=== PATIENT | female | born 2000 | race Hispanic/Latino ===

== ENCOUNTER 2024-02-20 16:11 | Emergency (ER) | payer OTHER ==
--- OUTSIDE RECORDS SUMMARY | 2024-02-20 16:17 | XMS REPORT | Continuity of Care Document ---
Author Name Unknown Address [address] [facility] Jose Daniel. [address] [place] [address] [facility] thconnect Address [address] [facility] Jose Daniel. [address] [place] [address] Care Team Providers Care Records Management Engineer Name Role Phone PCP, PATIENT DOES NOT HAVE A Primary Care Physic jessica Unavailable ALESHIA LEI Attending Clinician Unavailable JOHANNA PEDERSEN Attending Clinician Unavailable JOHANNA PEDERSEN Attending Clinician Unavailable 2, [facility] Attending Clinician Unavailable Johanna Pedersen MD Attending Clinician Doctor Unassigned, Triumph Attending Clinician U Marley Redd MD Attending Clinician [phone] MARLEY CROUCH Attending Clinician Unaangi garner Doctor Unassigned, [facility]riumph Attending Clinician U letitia 2, [facility] Attending Clinician Unavailable CAITIE RON Attending Clinician Unavailable Aleshia Lei MD Attending Clinician ASTRID NICOLE Attending Clinician Unavail able Astrid Santos Attending Clinician [phone] Nadine Luna MD Attending Clinician [phone] KARLOS FREEMAN Attending Clinician Unavail able Call, Apa Phone Attending Clinician Unavaila Karlos Merino MD Attending Clinician DO, JOSE CRUZ Attending Clinician Unavailable DO, JOSE CRUZ Attending Clinician Unavailable LAB90 Attending Clinician Unavailable MARII MUHAMMAD Attending Clinician Unavailable JAISON SPICER Attending Clinician Unavailable ALESHIA LEI Admitting Clinician Unavailable Aleshia Lei MD Admitting Clinician [phone] DO, JOSE CRUZ Admitting Clinician Unavailable EMERGENCY ROOM, EMERGENCY Admitting Clinician Un available Payers Payer Name Policy Type Policy Number Effective Date Expirati on Date Source [employer]EFITS [facility] [id number] 2023 00:00:00 [employer] BENEFITS IN [facility] [id number] 2023 00:00:00 [facility] [id number] 2023 00:00:00 [id number] DEGREE BENEFITS [place] [id number] 2023 00:00:00 Problems Condition Name Condition Details Condition Category Status Onset Date Resolution Date Last Treatment Date Treating Clinician Comments Source Obesity affecting in second trimester, unspecifie d obesity type Obesity affecting in second trimester, unspecifie d obesity type Disease Active 01-06 00:00: 00 [facility] Supervisio n of high risk in second trimester Supervisio n of high risk in second trimester Disease Active 01-06 00:00: 00 [facility] 12 weeks gestation of 12 weeks gestation of Disease Active 01-06 00:00: 00 [facility] Hypothyroi d Hypothyroi d Disease Active 2022-05 00:00: 00 Judy mcclain Corpus luteum cyst or hematoma Corpus luteum cyst or hematoma Disease Resolve d 05-06 00:00: 00 2023-11-24 00:00:2023-11-24 15:29:33 [facility] Allergies, Adverse Reactions, Alerts Allergy Name Allergy Type Status Severity Reaction(s) Onset Date Inactive Date Treating Clinician Comments Source NO KNOWN ALLERGIE S Drug Class Active [facility] Social History Social Habit Start Date Stop Date Quantity Comments Source ASSERTION 2023-10-29 00:00:00 [facility] Alcoholic beverage intake 2024-01-07 00:00:00 2024-01-07 00:00:00 Lifetime non-drinker (finding) [facility] History of Social function 2023-07-06 00:00:00 2023-07-06 00:00:00 [facility] Tobacco use and exposure 2023-05-06 00:00:00 2023-05-06 00:00:00 Smokeless tobacco non-user [facility] Alcohol intake 2023-04-15 00:00:00 2023-04-15 00:00:00 Lifetime non-drinker (finding) Judy Rodriguez - External Sex assigned at 2000 00:00:00 2000 00:00:00 [facility] Smoking Status Start Date Stop Date Source Tobacco smoking consumption unknown [facility] Never smoked tobacco [facility] Medications Ordered Medication Name Filled Medication Name Start Date Stop Date Current Medication? Ordering Clinician Indication Dosage Frequency Signature (SIG) Comments Components Source proMETHazin e 25 mg tablet 12-09 00:00: 00 Yes [id number] 25mg Take 1 tablet by mouth every 4 (four) hours as needed for Nausea and Vomiting (N/V). [facility] labetaloL (NORMODYNE) injection 10 mg 07-05 17:57: 28 Yes 10mg 10 mg, Slow IV Push, Q15MIN PRN, 2 doses, Starting on Wed07/06/23 at 1157, Until Discontinu ed, Routine, SBP greater than 170mmHg or DBP greater than 90mmHg., PACU [facility] HYDROmorpho ne (PF) (DILAUDID) injection 0.5 mg 07-05 17:57: 28 Yes .5mg 0.5 mg, Slow IV Push, Q5MIN PRN, 4 doses, Starting on Wed07/06/23 at 1157, Until Discontinu ed, Routine, Pain (scale 7-10), PACU
Us e approved by (Faculty): PACU USE -ANESTHESI A SERVICE-HY DROMORPHON E INJECTIONS [facility] HYDROmorpho ne (PF) (DILAUDID) injection 0.25 mg 07-05 17:57: 28 Yes .25mg 0.25 mg, Slow IV Push, Q5MIN PRN, 4 doses, Starting on Wed07/06/23 at 1157, Until Discontinu ed, Routine, Pain (scale 4-6), PACU
Us e approved by (Faculty): PACU USE -ANESTHESI A SERVICE-HY DROMORPHON E INJECTIONS [facility] proMETHazin e (PHENERGAN) 6.25 mg in NaCl 0.9% (NS) 50 mL piggyback 07-05 17:57: 27 Yes 6.25mg 6.25 mg, IV Piggyback, at 200 mL/hr Administer over 15 Minutes, Q15MIN PRN, 4 doses, Starting on Wed07/06/23 at 1157, Until Discontinu ed, Routine, Nausea and Vomiting (N/V), If unresponsi ve to first choice antiemetic , PACU [facility] ondansetron (ZOFRAN (PF)) injection 4 mg 07-05 17:57: 27 Yes 4mg 4 mg, Slow IV Push, PRN, 1 dose, Starting on Wed07/06/23 at 1157, Until Discontinu ed, Routine, Nausea and Vomiting (N/V), PACU [facility] albuterol (PROVENTIL) 2.5 mg /3 mL (0.083 %) nebulizer solution 2.5 mg 07-05 17:57: 27 Yes 2.5mg 2.5 mg, Inhalation , PRN, 1 dose, Starting on Wed07/06/23 at 1157, Until Discontinu ed, Routine, Wheezing, PACU [facility] ibuprofen (IBU) tablet 800 mg 07-05 16:12: 15 Yes 800mg 800 mg, Oral, PRN, 1 dose, Starting on Wed07/06/23 at 1012, Until Discontinu ed, Routine, Pain (scale 4-6), Endo Recovery [facility] acetaminoph en (TYLENOL) tablet 325 mg 07-05 16:12: 04 Yes 325mg 325 mg, Oral, PRN, 1 dose, Starting on Wed07/06/23 at 1012, Until Discontinu ed, Routine, Pain (scale 1-3), DSU Recovery [facility] bupivacaine (preserv free) (SENSORCAIN E MPF) 0.25 % (2.5 mg/mL) injection 07-05 15:55: 00 07-05 16:21 :50 No PRN, Starting on Wed07/06/23 at 0955, Until Wed07/06/23 at 1021, Routine, Intra-op [facility] lactated ringers IV infusion 1,000 mL 07-05 12:15: 00 07-05 12:40 :00 No 1000mL at 42 mL/hr, 1,000 mL, IV Infusion, ONCE, 1 dose, On Wed07/06/23 at 0615, Routine, DSU Pre-op [facility] pregabalin (LYRICA) capsule 75 mg 07-05 12:11: 30 07-05 12:25 :00 No 75mg 75 mg, Oral, O.R. HOLDING ONCE, 1 dose, Starting on Wed07/06/23 at 0611, Until Wed07/06/23 at 0625, Routine, Surgery/Pr ocedure [facility] phenazopyri dine (PYRIDIUM) tablet 200 mg 07-05 12:11: 30 07-05 12:25 :00 No 200mg 200 mg, Oral, O.R. HOLDING ONCE, 1 dose, Starting on Wed07/06/23 at 0611, Until Wed07/06/23 at 0625, Routine, Surgery/Pr ocedure [facility] celecoxib (CELEBREX) capsule 200 mg 07-05 12:11: 30 07-05 12:25 :00 No 200mg 200 mg, Oral, O.R. HOLDING ONCE, 1 dose, Starting on Wed07/06/23 at 0611, Until Wed07/06/23 at 0625, Routine, Pain [facility] oxyCODONE 5 mg immediate release tablet 07-05 00:00: 00 11-23 00:00 :00 No [id number] 5mg Take 1 tablet by mouth every 6 (six) hours as needed for Pain (scale 7-10) for up to 10 doses. Indication s: acute pain [facility] acetaminoph en (TYLENOL EXTRA STRENGTH) 500 mg tablet 07-05 00:00: 00 11-23 00:00 :00 No [id number] 500mg Take 1 tablet by mouth every 6 (six) hours as needed for Pain for up to 50 doses. [facility] ibuprofen 600 mg tablet 07-05 00:00: 00 11-23 00:00 :00 No [id number] 600mg Take 1 tablet by mouth every 6 (six) hours as needed for Pain (scale 4-6) for up to 50 doses. [facility] polyethylen e glycol 3350 17 gram/dose powder 07-05 00:00: 00 08-05 04:59 :00 No [id number] 17g Take 17 g by mouth in the morning for 30 days. [facility] levothyroxi ne 75 mcg tablet 08:41: 02 00:00 :00 No 75ug Take 1 tablet by mouth. [facility] ergocalcife rol, vitamin d2, 1,250 mcg (50,000 unit) capsule 08:41: 02 00:00 :00 No [id number] Take 1 capsule by mouth weekly. [facility] levothyroxi ne 75 mcg tablet 18 10:58: 33 Yes 75ug Take 1 tablet by mouth. [facility] ergocalcife rol, vitamin d2, 1,250 mcg (50,000 unit) capsule 05-20 10:58: 25 Yes [id number] Take 1 capsule by mouth weekly. [facility] levothyroxi ne 75 mcg tablet 05-06 15:27: 00 Yes 75ug Take 1 tablet by mouth. [facility] ergocalcife rol, vitamin d2, 1,250 mcg (50,000 unit) capsule 05-06 15:27: 00 Yes [id number] Take 1 capsule by mouth weekly. [facility] phentermine 37.5 mg tablet 2022-05 00:00: 00 00:00 :00 No 18.75mg Take 0.5 tablets by mouth. [facility] Phentermine HCl 37.5 MG oral Tablet 2022-05 00:00: 00 04-15 00:00 :00 No [id number] 18.75mg Take 0.5 tablets (18.75 mg total) by mouth every morning (before breakfast) . Judy mcclain Semaglutide -Weight Management (Wegovy) 0.25 MG/0.5ML subcutaneou s Solution Auto-inject or 2022-05 00:00: 00 Yes [id number] .25mg Inject 0.25 mg into the skin once a week. Judy mcclain Phentermine HCl 37.5 MG oral Tablet 2022-05 00:00: 00 Yes [id number] 18.75mg Take 0.5 tablets (18.75 mg total) by mouth every morning (before breakfast) . Judy mcclain Levothyroxi ne Sodium 75 MCG oral Tablet 2022-05 00:00: 00 Yes [id number] 75ug Take 1 tablet (75 mcg total) by mouth daily. Judy mcclain Immunizations Ordered Immunization Name Filled Immunization Name Date Status Comments Source Flu Injectable MDCK Pres-Free (FLUCELVAX) 2024-01-07 00:00:00 Completed [facility] Flu Injectable MDCK Pres-Free (FLUCELVAX) 2024-01-07 00:00:00 Completed [facility] Flu Injectable MDCK Pres-Free (FLUCELVAX) Unknown Completed [facility] Flu Injectable MDCK Pres-Free (FLUCELVAX) Unknown Completed [facility] Flu Injectable MDCK Pres-Free (FLUCELVAX) Unknown Completed [facility] DTaP Unspecified Unknown Completed Michael Rodriguez - External Influenza Virus Vaccine, Live, Attenuated, Intranasal Use Unknown Completed Judy Harley d - External HEPATITIS A- PEDI/ADOL Unknown Completed Judy Rodriguez - External Hepatitis B, Adolescent Or Pediatric Unknown Completed Judy Rodriguez - External HIB- Haemophilus Influenzae Type B Unknown Completed Judy maria - External HPV 4 (Human Papillomavirus) Unknown Completed Judy Cox ld - External Meningococcal Vaccine- Conjugate(Menactra) Unknown Completed Judy colon - External MMR- Measles, Mumps, Rubella Unknown Completed Judy Harley d - External Pneumococcal Vaccine, Conjugate 7 Unknown Completed Judy Rodriguez - External IPV- Inactivated Polio Vaccine Unknown Completed Judy Rodriguez - External Tdap- (Boostrix, Adacel) Unknown Completed Judy Rodriguez - External Varicella Vaccine Unknown Completed Darrius Rodriguez - External Vital Signs Vital Name Observation Time Observation Value Comments S ource Systolic blood pressure 2024-02-04 21:05:00 132 mm[Hg] [facility] Diastolic blood pressure 2024-02-04 21:05:00 81 mm[Hg] [facility] Heart rate 2024-02-04 21:04:00 107 /min [facility] Body temperature 2024-02-04 21:04:00 36.56 Gloria [facility] Respiratory rate 2024-02-04 21:04:00 18 /min [facility] Body height 2024-02-04 21:04:00 160 cm [facility] Body weight 2024-02-04 21:04:00 99.882 kg [facility] BMI 2024-02-04 21:04:00 39.01 kg/m2 [facility] Systolic blood pressure 2024-01-07 16:20:00 117 mm[Hg] [facility] Diastolic blood pressure 2024-01-07 16:20:00 72 mm[Hg] [place] [facility] Heart rate 2024-01-07 16:20:00 74 /min [facility] Res[facility] rate 2024-01-07 16:20:00 18 /min [facility] Body height 2024-01-07 16:20:00 160 cm [facility] Body weight 2024-01-07 16:20:00 98.431 kg Univ [facility] [place] BMI 2024-01-07 16:20:00 38.44 kg/m2 [facility] Systolic blood pressure 2023-12-10 14:52:00 127 mm[Hg] [place] [facility] Diastolic blood pressure 2023-12-10 14:52:00 80 mm[Hg] [place] [facility] Heart rate 2023-12-10 14:52:00 77 /min [facility] Respiratory rate 2023-12-10 14:52:00 18 /min [facility] Body height 2023-12-10 14:52:00 160 cm [facility] Body weight 2023-12-10 14:52:00 99.338 kg Univ [facility] [place] BMI 2023-12-10 14:52:00 38.79 kg/m2 Univ [facility] Systolic blood pressure 2023-12-03 20:08:00 130 mm[Hg] [place] [facility] [place] Diastolic blood pressure 2023-12-03 20:08:00 72 mm[Hg] [facility] Heart rate 2023-12-03 20:08:00 92 /min [facility] Respiratory rate 2023-12-03 20:08:00 17 /min [facility] Body height 2023-12-03 20:08:00 160 cm [facility] [place] Body weight 2023-12-03 20:08:00 99.791 kg Univ [facility] [place] BMI 2023-12-03 20:08:00 38.97 kg/m2 [facility] Systolic blood pressure 2023-11-24 19:17:00 124 mm[Hg] [place] [facility] Diastolic blood pressure 2023-11-24 19:17:00 77 mm[Hg] [facility] Heart rate 2023-11-24 19:17:00 87 /min Unive [facility] Body temperature 2023-11-24 19:17:00 36.28 Gloria [facility] Respiratory rate 2023-11-24 19:17:00 18 /min [facility] Body height 2023-11-24 19:17:00 160 cm [facility] Body weight 2023-11-24 19:17:00 99.519 kg [facility] BMI 2023-11-24 19:17:00 38.86 kg/m2 [facility] Systolic blood pressure 2023-07-14 18:12:00 125 mm[Hg] [facility] Diastolic blood pressure 2023-07-14 18:12:00 68 mm[Hg] [facility] Heart rate 2023-07-14 18:12:00 83 /min Unive [facility] Body temperature 2023-07-14 18:12:00 36.39 Gloria [facility] Respiratory rate 2023-07-14 18:12:00 18 /min [facility] Body height 2023-07-14 18:12:00 160 cm [facility] Body weight 2023-07-14 18:12:00 97.07 kg [facility] BMI 2023-07-14 18:12:00 37.91 kg/m2 [facility] Oxygen saturation in Arterial blood by Pulse oximetry 2023-07-14 18:12:00 98 /min [facility] Oxygen saturation in Arterial blood by Pulse oximetry 2023-07-06 17:49:00 97 /min [facility] Heart rate 2023-07-06 17:40:00 89 /min Unive [facility] Systolic blood pressure 2023-07-06 17:35:00 136 mm[Hg] [facility] Diastolic blood pressure 2023-07-06 17:35:00 76 mm[Hg] [facility] Respiratory rate 2023-07-06 17:35:00 11 /min [facility] Body temperature 2023-07-06 16:17:00 35.67 Gloria [facility] Body height 2023-07-06 12:09:00 160 cm [facility] Body weight 2023-07-06 12:09:00 97.523 kg [facility] BMI 2023-07-06 12:09:00 38.09 kg/m2 [facility] Systolic blood pressure 2023-07-06 17:00:00 141 mm[Hg] [facility] Diastolic blood pressure 2023-07-06 17:00:00 75 mm[Hg] [facility] Heart rate 2023-07-06 17:00:00 91 /min Unive [facility] Respiratory rate 2023-07-06 17:00:00 15 /min [facility] Oxygen saturation in Arterial blood by Pulse oximetry 2023-07-06 17:00:00 93 /min [facility] Body temperature 2023-07-06 16:17:00 35.67 Gloria [facility] Body height 2023-07-06 12:09:00 160 cm [facility] Body weight 2023-07-06 12:09:00 97.523 kg [facility] BMI 2023-07-06 12:09:00 38.09 kg/m2 [facility] Systolic blood pressure 2023-05-06 21:24:00 119 mm[Hg] [facility] Diastolic blood pressure 2023-05-06 21:24:00 80 mm[Hg] [facility] Heart rate 2023-05-06 21:24:00 86 [facility] Body temperature 2023-05-06 21:24:00 36.11 Gloria [facility] Body height 2023-05-06 21:24:00 160 cm [facility] Body weight 2023-05-06 21:24:00 91.491 kg [facility] BMI 2023-05-06 21:24:00 35.73 kg/m2 [facility] Oxygen saturation in Arterial blood by Pulse oximetry 2023-05-06 21:24:00 100 /min [facility] Systolic blood pressure 2023-05-03 23:50:36 133 mm[Hg] [facility] Diastolic blood pressure 2023-05-03 23:50:36 81 mm[Hg] [facility] Heart rate 2023-05-03 23:50:36 77 /min [facility] Body temperature 2023-05-03 23:50:36 36.72 Gloria [facility] Respiratory rate 2023-05-03 23:50:36 16 /min [facility] Oxygen saturation in Arterial blood by Pulse oximetry 2023-05-03 23:50:36 99 /min [facility] Body weight 2023-05-03 19:43:00 90.266 kg [facility] Systolic blood pressure 2023-04-15 19:55:00 118 mm[Hg] Judy Seybo ld - External Diastolic blood pressure 2023-04-15 19:55:00 68 mm[Hg] Judy Seybo ld - External Heart rate 2023-04-15 19:55:00 72 /min Kelse y Seybold - External Body temperature 2023-04-15 19:55:00 36.67 Gloria Judy Seybold - External Respiratory rate 2023-04-15 19:55:00 16 /min Judy Seybold - External Body height 2023-04-15 19:55:00 160 cm Ree castaneda Seybold - External Body weight 2023-04-15 19:55:00 94.348 kg Ree ey Seybold - External BMI 2023-04-15 19:55:00 36.85 kg/m2 Ree ey Seybold - External Oxygen saturation in Arterial blood by Pulse oximetry 2023-04-15 19:55:00 99 /min Judy Seybo ld - External Systolic blood pressure 2023-03-10 20:12:00 120 mm[Hg] Judy Seybo ld - External Diastolic blood pressure 2023-03-10 20:12:00 80 mm[Hg] Judy Seybo ld - External Heart rate 2023-03-10 20:12:00 77 /min Kelse y Seybold - External Body temperature 2023-03-10 20:12:00 36.5 Gloria Judy Seybold - External Respiratory rate 2023-03-10 20:12:00 15 /min Judy Rodriguez - External Body height 2023-03-10 20:12:00 160 cm Ree Rodriguez - External Body weight 2023-03-10 20:12:00 102.513 kg Ree Rodriguez - External BMI 2023-03-10 20:12:00 40.03 kg/m2 Ree Rodriguez - External Procedures Procedure Date / Time Performed Performing Clinician Source POCT URINALYSIS W/O SPECIFIC GRAVITY 2024-02-04 00:00:00 Adum, Johanna Johny [facility] FLU VACC ([id number]), 6 MO-64 YRS, .5ML, IM, TIV (FLUCELVAX) 2024-01-07 16:31:45 Adum, Johanna Mcclain [facility] POCT URINALYSIS W/O SPECIFIC GRAVITY 2024-01-07 00:00:00 Adum, Johanna Mcclain [facility] URINE DRUG (IMMUNOASSAY) - COMPREHENSIVE DRUG SCREEN 2023-12-10 20:46:00 Adum, Johanna Mcclain [facility] OB TRANSVAGINAL 2023-12-10 15:41:04 Adum, Johanna Mcclain [facility] POCT URINALYSIS W/O SPECIFIC GRAVITY 2023-12-10 00:00:00 Adum, Johanna Mcclain [facility] OB TRANSVAGINAL 2023-12-03 20:46:58 Varun Crouchjohny [facility] POCT URINALYSIS W/O SPECIFIC GRAVITY 2023-12-03 00:00:00 Marley Crouch [facility] POCT TEST 2023-11-24 00:00:00 Adum, Johanna Mcclain [facility] POCT URINALYSIS W/O SPECIFIC GRAVITY 2023-11-24 00:00:00 Adum, Johanna Mcclain [facility] LIZ,POST-VOID RES,US,NON-IMAGING 2023-07-14 18:15:00 Astrid Nicole [facility] CYTO OTHER 2023-07-06 14:15:00 Do, Aleshia [facility] LAPAROSCOPIC ROBOTIC ASSISTED OVARIAN CYSTECTOMY 2023-07-06 12:48:00 Aleshia Lei [facility] POCT TEST 2023-07-06 12:41:00 Aly Breaux [facility] POCT TEST 2023-07-06 12:41:00 Aly Breaux [facility] ASSIGNMENT OF BENEFITS 2023-07-06 11:54:22 Docto r Unassigned, Triumph [facility] URINALYSIS 2023-05-03 22:46:00 Walker Bridges [facility] US OVARY TORSION 2023-05-03 22:10:48 [facility] 2023-05-03 21:14:00 Walker Bridges [facility] COMP. METABOLIC PANEL (19400) 2023-05-03 21:14:00 Shameka Mann [facility] CBC WITH DIFF 2023-05-03 21:14:00 Shameka Mann [facility] URINALYSIS 2023-05-03 21:14[facility]00 [facility] Start Date/Time End Date/Time Encounter Type Admission Type Attending Clinicians Care Facility Care Department Encounter ID Source 2023-05-13 13:27:06 Outpatient R ALESHIA LEI [facility] [employer] [facility] [id number] [facility] 2023-05-06 18:08:15 Outpatient R ALESHIA LEI [facility] [id number] [facility] 2024-03-17 13:00:00 2024-03-17 13:00:00 Outpatient R [facility] [id number] [facility] 2024-03-03 08:15:00 2024-03-03 08:15:00 Outpatient R JOHANNA PEDERSEN VIVIAN [facility] [id number] [facility] 2024-02-08 08:45:00 2024-02-08 09:01:03 Outpatient R JOHANNA PEDERSEN [facility] [id number] [facility] 2024-02-08 08:45:00 2024-02-08 09:01:03 Wardrobe Supervisor Visit 2, Adc Lab AdJohanna case 2, Adc Lab [facility] [id number] [facility] 2024-02-04 16:00:00 2024-02-04 16:27:13 Outpatient R ADUM, JOHANNA TIRADO [facility] [id number] [facility] 2024-02-04 16:00:00 2024-02-04 16:27:13 Routine Visit AdJohanna case [facility] [id number] [facility] 2024-02-04 10:45:00 2024-02-04 10:45:00 Outpatient R ADUM, JOHANNA PEDERSEN [facility] [id number] [facility] 2024-01-17 00:00:00 2024-01-17 14:22:33 Telephone AdJohanna case [facility] [id number] [facility] 2024-01-07 11:00:00 2024-01-07 11:38:04 Outpatient R ADUM, JOHANNA [facility] [id number] [facility] 2024-01-07 11:00:00 2024-01-07 11:38:04 Routine Visit AdJohanna case [facility] 1.2.840.114 350.1.13.10 4.2.7.2.686 [id number] [facility] 2024-01-07 10:15:00 2024-01-07 10:30:00 Wardrobe Supervisor Visit 2, Adc Lab AdumJohanna 2, Adc Lab [facility] 1.2.840.114 350.1.13.10 4.2.7.2.686 [id number] [facility] 2023-11-26 00:00:00 2024-01-01 18:24:26 Patient Secure Msg Doctor Unassigned, Triumph Doctor Unassigned, Triumph [facility] 1.2.840.114 350.1.13.10 4.2.7.2.686 [id number] [facility] 2023-12-27 00:00:00 2023-12-27 07:40:29 Telephone AdumJohanna [facility] 1.2.840.114 350.1.13.10 4.2.7.2.686 [id number] [facility] 2023-12-26 00:00:00 2023-12-27 07:38:13 Patient Secure Msg Johanna Pedersen [facility] 1.2.840.114 350.1.13.10 4.2.7.2.686 [id number] [facility] 2023-12-10 10:45:00 2023-12-10 11:00:00 Wardrobe Supervisor Visit 2, Adc Lab AdJohanna case 2, Adc Lab [facility] 1.2.840.114 350.1.13.10 4.2.7.2.686 [id number] [facility] 2023-12-10 10:00:00 2023-12-10 10:35:15 Outpatient R OPALJOHANNA MICHAELEVIE, JOHANNA [facility] [id number] [facility] 2023-12-10 10:00:00 2023-12-10 10:35:15 Initial Visit Adum, Johanna Mcclain [facility] 1.2.840.114 350.1.13.10 4.2.7.2.686 [id number] 134 [id number] [facility] 2023-12-03 15:00:00 2023-12-03 15:30:00 Office Visit Brianne Louiesol [facility] 1.2.840.114 350.1.13.10 4.2.7.2.686 [id number] [facility] 2023-12-03 15:00:00 2023-12-03 15:00:00 Outpatient R VILLAREALYasmeenGEMA Rob, MARLEY SOFYI S, MARLEY [facility] [id number] [facility] 2023-12-02 00:00:00 2023-12-03 14:04:17 Patient Secure Msg Doctor Unassigned, Triumph [facility] 1.2.840.114 350.1.13.10 4.2.7.2.686 [id number] [facility] 2023-11-26 08:00:00 2023-11-26 08:15:00 Wardrobe Supervisor Visit 2, Adc Lab Adum, Johanna Mcclain [facility] 1.2.840.114 350.1.13.10 4.2.7.2.686 [id number] [facility] 2023-11-26 08:00:00 2023-11-26 08:00:00 Outpatient R MICHAELJOHANNA CASE [facility] [id number] [facility] 2023-11-24 15:15:00 2023-11-24 15:15:00 Wardrobe Supervisor Visit 2, Adc Lab Adum, Johanna Mcclain [facility] 1.2.840.114 350.1.13.10 4.2.7.2.686 [id number] [facility] 2023-11-24 14:00:00 2023-11-24 15:04:33 Outpatient R JOHANNA PEDERSEN VIVIAN [facility] [id number] [facility] 2023-11-24 14:00:00 2023-11-24 15:04:33 Initial Visit Johanna Pedersen Johny [facility] 1.2.840.114 350.1.13.10 4.2.7.2.686 [id number] [facility] 2023-09-29 00:00:00 2023-09-29 00:00:00 Outpatient CAITIE RON [id number] Judy Rodriguez 2023-08-09 00:00:00 2023-08-09 00:00:00 Telephone Cleveland Leikhan [facility] 1.2.840.114 350.1.13.10 4.2.7.2.686 [id number] [facility] 2023-07-14 13:00:00 2023-07-14 14:49:48 Outpatient R ASTRID NICOLE [facility] [id number] [facility] 2023-07-14 13:00:00 2023-07-14 14:49:48 Office Visit Corey Astrid Jhon [facility] 1.2.840.114 350.1.13.10 4.2.7.2.686 [id number] [facility] 2023-07-07 00:00:00 2023-07-07 00:00:00 Outpatient CAITIE RON [id number] [facility] 2023-07-06 05:54:00 2023-07-06 12:08:00 Outpatient R DO [facility] [id number] [facility] 2023-07-06 05:54:00 2023-07-06 12:08:00 Hospital Encounter Do [facility] ([facility]) 1.2.840.114 350.1.13.10 4.2.7.2.686 [id number] [facility] 2023-07-06 07:00:00 2023-07-06 11:01:00 Surgery Do [facility] 1.2.840.114 350.1.13.10 4.2.7.2.686 [id number] [facility] 2023-07-06 00:00:00 2023-07-06 00:00:00 Orders Only Doctor Unassigned, Triumph [facility] 1.2.840.114 350.1.13.10 4.2.7.2.686 [id number] [facility] 2023-06-28 00:00:00 2023-06-28 00:00:00 Telephone AshleymaryNadine orozco [facility] 1.2.840.114 350.1.13.10 4.2.7.2.686 [id number] [facility] 2023-06-23 00:00:00 2023-06-23 00:00:00 Telephone [facility] MEDICAL OFFICE BUILDING 1.2.840.114 350.1.13.10 4.2.7.2.686 [id number] [id number] [facility] 2023-06-23 00:00:00 2023-06-23 00:00:00 Telephone [facility] MEDICAL OFFICE BUILDING 1.2.840.114 350.1.13.10 4.2.7.2.686 [id number] [facility] 2023-06-09 00:00:00 2023-06-09 00:00:00 Telephone Do, [facility] MEDICAL OFFICE BUILDING 1.2.840.114 350.1.13.10 4.2.7.2.686 [id number] [id number] [facility] 2023-06-07 13:20:00 2023-06-07 13:20:00 Outpatient R TAQUERIA FREEMANNG [facility] [id number] [facility] 2023-05-13 14:30:00 2023-05-13 14:30:00 Outpatient CAITIE RON JUDY TRACEY [id number] Judy [facility] 2023-05-13 08:00:00 2023-05-13 08:00:00 Outpatient ASAF CAITIE TRACEY [id number] Judy [facility] 2023-05-13 00:00:00 2023-05-13 00:00:00 Telephone [facility] OFFICE BUILDING 1.2.840.114 350.1.13.10 4.2.7.2.686 [id number] [id number] [facility] 2023-05-11 00:00:00 2023-05-11 00:00:00 Telephone Do [facility] MEDICAL OFFICE BUILDING 1.2.840.114 350.1.13.10 4.2.7.2.686 [id number] [facility] 2023-05-07 08:35:00 2023-05-07 08:40:00 Pre-Anesth esia Evaluation Call, [facility] Phone [facility] 1.2.840.114 350.1.13.10 4.2.7.2.686 [id number] [facility] 2023-05-06 15:00:00 2023-05-06 16:58:25 Outpatient R DO [facility] [id number] [facility] 2023-05-06 15:00:00 2023-05-06 16:58:25 Office Visit Do, Aleshia [facility] MED[facility] OFF[facility] BUILDING 1..840.114 350.1.13.10 4.2.7.2.686 [id number] [id number] [facility] 2023-05-06 00:00:00 2023-05-06 00:00:00 Patient Secure Msg Doctor Unassigned, Triumph [facility] 1..840.114 350.1.13.10 4.2.7.2.686 [id number] [id number] [facility] 2023-05-04 00:00:00 2023-05-04 00:00:00 Telephone Karlos Freeman [facility] 1..840.114 350.1.13.10 4.2.7.2.686 [id number] [facility] 2023-05-03 13:46:00 2023-05-03 17:51:00 Emergency X DO, JOSE CRUZ DO, JOSE CRUZ [facility] ERT [id number] [facility] 2023-05-03 13:46:00 2023-05-03 17:51:00 Emergency Do, Jose Cruz [facility] 1..840.114 350.1.13.10 4.2.7.2.686 [id number] [facility] 2023-04-21 08:25:00 2023-04-21 08:25:00 Outpatient LAB90 JUDY TRACEY [id number] [facility] 2023-04-21 00:00:00 2023-04-21 00:00:00 Outpatient CAITIE RON [id number] Judy Rodriguez 2023-04-20 00:00:00 2023-04-20 00:00:00 Outpatient CAITIE RON [id number] Judy Rodriguez 2023-04-15 14:45:00 2023-04-15 14:45:00 Outpatient LAB90 JUDY TRACEY [id number] Judy [facility] 2023-04-15 14:00:00 2023-04-15 14:00:00 Outpatient CAITIE RON [id number] Judy Rodriguez 2023-04-09 00:00:00 2023-04-09 00:00:00 Outpatient MARII MUHAMMAD [id number] Judy Rodriguez 2023-04-08 00:00:00 2023-04-08 00:00:00 Outpatient CAITIE RON [id number] Judy Rodriguez 2023-03-15 00:00:00 2023-03-15 00:00:00 Outpatient CAITIE RON [id number] Judy Rodriguez 2023-03-12 08:40:00 2023-03-12 08:40:00 Outpatient LAB90 JUDY TRACEY [id number] Judy Rodriguez 2023-03-10 14:00:00 2023-03-10 14:00:00 Outpatient CAITIE RON [id number] Judy Rodriguez 2023-01-20 08:21:58 2023-01-20 08:21:58 Outpatient SFA [facility] [id number] Rony Macdonald 2022-10-29 09:57:03 2022-10-29 09:57:03 Outpatient SFA [facility] [id number] Rony Macdonald 2004-09-01 14:39:00 2004-09-05 03:57:00 Emergency X NAYAN, JAISON [facility] ERT [id number] [address] [place] [address] Results Test Description Test Time Test Comments Results Result Co mments Source [facility] w/o Specific [id number] 16:19:00* Test Item Value Reference Range Interpretation Comme nts POCT PH U (test code = 3254) n/a 5-8 POCT U LEUK EST (test code = 3263) n/a Negative - Negative POCT U NIT (test code = 3262) n/a Negative - Negati ve POCT U PROT (test code = 3259) negative Negative - Negat vladislav POCT U GLU (test code = 3256) negative Negative - Negati ve POCT U KETONE (test code = 3258) n/a Negative - Neg ative POCT U BLD (test code = 3257) n/a Negative - Negati ve [facility] Urinalysis w/o Specific [id number] 15:17:00* Test Item Value Reference Range Interpretation Comme nts POCT PH U (test code = 3254) n/a 5-8 POCT U LEUK EST (test code = 3263) n/a Negative - N egative POCT U NIT (test code = 3262) n/a Negative - Negati ve POCT U PROT (test code = 3259) neg Negative - Negat vladislav POCT U GLU (test code = 3256) neg Negative - Negati ve POCT U KETONE (test code = 3258) n/a Negative - Neg ative POCT U BLD (test code = 3257) n/a Negative - Negati ve [facility] Urinalysis w/o Specific [id number] 20:07:00* Test Item Value Reference Range Interpretation Comme nts POCT PH U (test code = 3254) 8 mg/dl 5-8 POCT U LEUK EST (test code = 3263) negative Negative - Negative POCT U NIT (test code = 3262) negative Negative - Negati ve POCT U PROT (test code = 3259) trace Negative - Negat vladislav POCT U GLU (test code = 3256) negative Negative - Negati ve POCT U KETONE (test code = 3258) neagtive Negative - Neg ative POCT U BLD (test code = 3257) 250 Negative - Negati ve [facility] Urinalysis w/o Specific [id number] 19:19:00* Test Item Value Reference Range Interpretation Comme nts POCT PH U (test code = 3254) n/a 5-8 POCT U LEUK EST (test code = 3263) n/a Negative - N egative POCT U NIT (test code = 3262) n/a Negative - Negati ve POCT U PROT (test code = 3259) trace Negative - Negat vladislav POCT U GLU (test code = 3256) normal Negative - Negati ve POCT U KETONE (test code = 3258) n/a Negative - Neg ative POCT U BLD (test code = 3257) n/a Negative - Negati ve [facility] [id number] 19:18:00* Test Item Value Reference Range Interpretation Comme nts POCT PREG (test code = 1605) Positive On board controls acceptable with C Line (test code = 3574) Yes POCT PREG LOT # (test code = 3575) POCT PREG TEST DATE ( test code = 3576) [facility],POST-VOID RES,US,[id number] 18:15:00* Test Item Value Reference Range Interpretation Comme nts PVR (URINE VOLUME) (test code = 5193) 11 ml 0-100 Lab Interpretation (test cod e = 89074-3) Normal [facility],POST-VOID RES,US,[id number] 18:15:00* Test Item Value Reference Range Interpretation Comme nts PVR (URINE VOLUME) (test code = 5193) 11 ml 0-100 Lab Interpretation (test cod e = 73388-2) Normal [facility] [id number] 15:56:34* Test Item Value Reference Range Interpretation Comme nts Case Report (test code = 7769126009) Non-Gynecologic Cytology ?Case: [id number] ?Authorizing Provider: ?Aleshia Lei MD ?Collected: ? 07/06/2023814 ?Ordering Location: ? ? [facility] ? ? Received: ?07/06/2023840 ? Center ? Pathologist: ? Jennie Rodriguez MD ? Specimen: ? ?PERITONEAL WASHINGS ? Final Diagnosis (test code = 9078609842) d3lnsKLpICJyx2ypAIQioLN uZzEwMzNcZnRuYmpcdWMxIH damoQoPRihrHjeCBI7BGSoU V1jmCnapPv9uSupBEHaqjT6 sYRkUThua8tbYMO8c3gpjvp iUWPmAMvbLv8pcKRebMpkRf KuNZQjVTn1pO35ANZteG2dl WEpTAm7UVOzzADtrbImGtIw QJRkbMNsvIG7QUIsPM8eqou kGCoaHVgqMJVhhlP1HDUprN VjH1OoBQSxND3fmygrWHP5H WsqLDFbPVU2WlTaWMRwd1My vwc5IeNpsSFsVRxdlWEdgby iXGZzMjBccGFyXGZzMjIgQS 4xWLMVOyzFD08GDCb4JGgRP 0hJTkdTOlxwYXIgICAgICAt PF2NM3AYYOUBTHFQAcBJLMg KM08BJnErC4MTHKHdCSRDXO UHC07XAB0WJHcrJSNdjVTrI KCoGNUvLrWsU7nmZpMlmF4t SwZmpX6jII6LVBPnxlzhWAT zMjJccGFyfXtccnRmMVxzc3 DqV7XdXmEeXDktpxVdIQPjI pafwyytNBWtEDB7gsVxEJKs OJczPMOmCPxxAq2miUHytRq pWxMrTEAjt0hrbrTEJGxtHs ZzA938IQQoZNpkj2qad7TyH OOtvYZlc4J7YKFGmrfibIp4 p2mvCcTmSoL6kXRuYBqqY0b ircHeoQFrA2UalTXxaBo6sN umB67fn7A2PxckL8umOVGqE NMwG9KtNG8aJRWdFsl5MHH8 OZZ4GAGwZTMrN9XiQS9cKOW poHHdWNk8j9idrWzfAYTuGM B3j0bsJSotsfS6SJ4byb6ql Ym9y0kjnwBlIWLhOUXvqTZS ERGuK0DlbTufJw8wiTw5oCd xOtfiSAC1Cnd8CQ9mtb67eo v1aQkxFQFeghugTxZ9WGsdH JGrfnvrGTo2UAvqLDDhtSY1 HGUlsZNsN2EkOYJqXM6ydlc 1KDC9MNtoBJVdRgT3HOOjyX JmQXUliDdoLPhcp530HVP5T dTdQD4tZ5Hpw7B0yP9nuVJy YLVgrHNwVrXzILLcta7ezKW hBArgw7MvAVJ3njG4lUVkdI FbYALmJU04Yffaq8DsVrpaS HF7VLXpvhQza1Qqi7crYnTy xpNcG5cxJ1UuDTGiYLZqSKW zDfTlagBjd5Pjr9KjsXNkuI p7j4zcRGKmJEMmlYkvu7saK AF1HHTuN0E2gRHre2wdZVki BRIwqOX0ziS1OKGrtFJlW5T bkM1pOYDxCB9jwtu0k4veTY L9GTvgJCViUzM2dmC0ULQqi TMhOXVrnMvzMRkky979WUI5 OjJzDBIpw2XmX2FcvSptQ10 foTuqI46eFXCidSbllL4twW nwsW6wWaJwSpFcNOadxSwca GFpblxmMVxmczIwXGxhbmcx ZJEuWVpfQ9jxOdEuXKThzOu iUIbvk9IhWJMbHPXtJhkqdi IwXHBhciBJIGhhdmUgcGVyc 29uYWxseSByZXZpZXdlZCBh qMthf1MpZ9wvPI0lH3MrqHT adkAxgxXkXWgaXNTed2o4dA KbiXgdn9IdlYKnBN31pjJzF BUgMBT2NPCtl3cgFQ36dcvl HwJkbR55ifHpesMrHIVxi8u dF4zkuFXkw3Zpu6OjfsIfQU msa9FeXE8grFVpmxjijWJ3M TAbzYOqomTkppW7hJnjHVHo wP7oeG5llXuroQ9nQjZiUaG zIKzjJI5jKOZgC2busGJgJK XgNBNnO0ltTyVoaF4wsCdaZ ahuhpS1TFUzoi95 Final Diagnosis Comment (test code = 2771498985) v9gtvIMjXJKjuMHrCQNdTFq dkqLtYXBihEKqK8VjccibWI xaEH1mKQ7ivPxarHOgpXWgG MMaAdFge6fga809yNPqz6iz MPRJauoarCw2xBvsN66mp9U 9EenuN71ucMNjPMF8LVIfVM AdwKYzUEWqQGD3LFOcrNCwM 2moAHDvHJ4cngjxBKraHBrr LXVthDE2EDCdqRIkF3WgMEK lHNvbSJNruzn1GsOsYu2guP VyeTcyMFxwYXJkXHBsYWluX JGvViJfH2p4t6SruV6hNC1k LBHscJ2VgpVuLHIdx9snl0e mTKInLB0bROUsarkgorQbqO NyOOSxkzcyfIYtu9GiAMomG KymT5DtaWCoqD4hLXUsRELk Q2AqwC0cGN6eLHh7sNKan7W 7mGMaONWodoQjnZvejQucW9 g5SLBbBB9iWZ2exUxtztXkk CBjZWxscyBzZWVuLlxwYXJ9 Clinical Information (test code = 4499220616) Josephine Lopez is a 23 year old femaleCorpus luteum cyst or hematoma [N83.10] Gross Description (test code = 5204782899) g0trtQFvEPYffIZaZIWlVEq yxxDsDWYdkHVpY4EjgzuwZB wsFS1eIB3zcOdkjQWalBHnW YTfZsYnn1llb663oORzf9ff IBFZxmrkkUs0dGihJ59va7A 1TomuO02tgEChGDX8ZTMbER QyoIOgZKWwMXC1VEErdKCnN 8ubNHJxPW9xjmtfJOysNVqu IZUiqJY9VLHmtJJhS8KcBZZ jTDwpTAJsuxa6TiFqQz7naP OykOotMElnZnpmwOqbs8Auf CBcXGlkIDUxMDAwIFxcZGIg W9BNSGLjSRF1AdC9QWQqWRJ AJSX7ZJRnSAE3ZDENPBKgIW JfQTn2VmC6XcEsLSYSJAtkJ DAwMDAwMDEgXFxuaCBcXHQg MWKbVNYbPYguwdY7l3rnGZC cmKBuDAA2HAcboNAlZJUnIR IgXFxkYiBPVlIgIiAxMTkyM TW0QtWuTEq4LJcwH0HWYYMf MLT7UbvgVOPgImM7IIc8WDF HUi7jZmA8KIF8ZvY7CRR6FW YyNyBcXHQgMiBcXHNzIDMgX KffnZUeRM8jwHfkQZAjHHDq YWluXGZzMjJccGFyXHBhcmR ug7XhUYedgGldEBGfVeFkeE nrvG0pVuEjVwlqRTJroXQrQ WTNVN7xGUMFKvbHR36JCBn2 DYpFJ4cLEvfETBZpolXNNTY umHDlISThiiPhpTNhrcD7OY PbGbcoJX0nJHWbdkh4pI5co 3VzIGZsdWlkXHBhclxzYTMw OCFnlCECz8LmESNOgcWrUEU lZCAzIHNsaWRlcyAoMSBSb2 3yyl15k0e3GQI2YMnnNACgF 8w4q9QreX0sMYFrVZSaGS9z Q74vKK78YLA7HHpgCBXnE2e 2n4KciS4pLXNdSTJwYJXksG FuaWNvbGFvdSBUaGlucHJlc DWmrcPqVVSuuZdomje9FFVs dEXdFCG9RY1tvFofTXClA1E vY9OrvvO1EDSmyv1= Disclaimer (test code = 4022794457) g0uifVGzIGZzp4yeRPRncPE uZzEwMzNcZnRuYmpcdWMxIH lzayAlNNvwq5VeP1HkMgWoJ FxhbnNpXGRlZmxhbmcxMDMz YNX3ojVfHSBjPMziCYCwSEk fNc0dvQJnaIrtCmEzFUUiy1 tfawRFZEqzMcQxQ934UTQtJ Zzdp2psg1PqNYPhbUWvs3T7 UACAsucijMn1i9xwRuLzVoB 1rAFcDEhgM8nygsPajIIrM7 FlvGPvkDk4iCntS18eo6D5D yyxP8cqBEEqZFLuO7QmNJ2k NBUhKif5GUT2IPI7YSAwDYC dH8DdGJ1gLBUccSXfQSi0v3 moqGpbQQCwOIL4s6efGGthq qCoKO1woo9fhAe1v4qyjmXi UPOuLBZstKADDYUwQ0CccTh xNx4nwMn4nNwzBqzdEXL3Rv q0AG3pzo82orm9tZdhIMRxg qzdJuC2KVjtTCDbdgyfWGx9 AHtwEHOvnZY4CQDjsFMrP1O mNJWrGP9advh0TUQ5TGpjVO OtIpX5MTCukILtSUGebYgkW Fpxu706NEJ0PvZuWZ2cY2Kh v2Y8cG0ezCTzGMHjePTgSxI bLVVchc3fbISzJPekk6HtAJ H5ojI1gDStvMPgMTXnYH57R xolg1ZhRxsjEYQ9AMXaivNc n7Rup7dkFyNheiVcM7xuU5H yZHJoZWFkXHBnYnJkcmZvb3 Myb1YtkVTcjUr4m6yrXANxB ZAyaHmde4huJNU2KKKbK5J4 rDGkc4ihTEapTXIpwQP5oyH 2BTFlfOLwA9EwxC8kVGQdTN 9ncoj4d7mkKAY1MMeeAFHpG tM1kvL1TKNllCDuDFRqxEgd DPwnq980NQK4DjOdZQZwq7J pP4EdwMzuR33wvUrnE12aCU SeiZqpxU6cxJyfmO7rYpWnY nMyNFxxbFxwbGFpblxmMVxm ybWcCZjcjjcoKIYqDAfeD7y kAwUvIMJuzIgeKMmtp7BsGX YxXGNmMlxmczIwIFRoaXMgc rZgr7C9BB4wyPZcesBaeNQe PUHhp6UzgRVsj1WmhBXsUBM oacPre8AbTID2QAH7tU8lRW NkvpXjsf7sCVM4y0dhEuEYp KZakkWWEJEhMEb2rIFyH0Rb V5rskLCsKgGqW0WbrHMwFKK VYwTvWO2bkZCkqbKcZM1oSA I2ycYtYFSvHTYkjc7zHRLmW Q86jOHnYFEqbmTmWR2dEqHT tPbji8UuaAI3URF2fJ1mGAk bfoMjDMOafS9kHDNoHU5sMV f0swItFOHwf3HtWH7iRPHhi EKuTQC8CQGln8LcC4DeEGQ8 BVWgtT1gXGZvqEGOHU2VKGo vPn3zFXBtkhthI5NoikqjJO JkMHKRsGRbKYAjuh88DJDtX E7aL4plRIGiMWQdkwYhaFSs f6UlEKEbwIL8tLAwUG7HVwN Qe42yAYDkFZWFuaMjILVewO uokVD9ovE2iA9gUVtSPPRnA yIlMKqqROJOXSMuc6KsTJ9f rGNgYTX4aVUaCNTdrCKuofK fICVjazS7iDSwVXN3KUR2qq 4gIFxwYXJccGFyIFVUTUIgT XIpz6IxjP8bmJNoOUFvRCEg wURxv4EmovJjCPYbOXRhAZH fvU8jC5WlASnfZx5kXDZjup voSI2yep72JQ5hpfDoEM6nz nTdPR33tjKtI9gJUGbzqG2s wTIeSa4glZEovVjzYQJhjKB dSSxtlCwdhVNrqVauCs4bAK xwYXJccGFyIEFwcHJvcHJpY WHohDqvhxHnH5CbffIbqH6s mGJkzvAmUP2lDV7mR8U3nLA vAXUtntMft3vmZDhxzxWaKm ZsvuLxDBSbQXvqYHYfg6HbK WfcJGF6CVsligXlliPdlGTt bmcgSCZFLCBTcGVjaWFsIFN 6WLrkfbSnlvZcLJ8nrV3rfM ancT9lqESqcCZ7wxowFUKgR KNrsHrhSXXiAO0hcWJeFHJm jaKQzSkdtKMamQ3dX8HgAVJ vUPXiwc6wUTDyzF4fWDoas7 VydmljZXMgYXJlIHBlcmZvc z7yDAXsmMVBKH2WUBxjmAXo b9FfrrHfX7tJZRM9OWEnBcI wMjgxKSBleGNlcHQgYXMgbm 99YSNgvY1bnIvyAXYwtY3bh A3ayKnpzE7hFiKuOgWxWvgc AP2bCCUeT8sbeICtWUBnLOR jD7lhUeSbpN8bmUvaAeqsjz XaUENnyc41 Embedded Images (test code = 7254858799) [id number] 12:41:00* Test Item Value Reference Range Interpretation Comme nts POCT PREG (test code = 1605) Negative On board controls acceptable with C Line (test code = 3574) Yes POCT PREG LOT # (test code = 3575) POCT PREG TEST DATE ( test code = 3576) [facility] [id number] 12:41:00* Test Item Value Reference Range Interpretation Comme nts POCT PREG (test code = 1605) Negative On board controls acceptable with C Line (test code = 3574) Yes POCT PREG LOT # (test code = 3575) POCT PREG TEST DATE ( test code = 3576) [facility] OVARY [id number] 22:31:55Ordering Physician: Jose Cruz Edwards History: Adnexal mass, abdominal pain, evaluation for torsion. Comparison Study: None. Technique: Transabdominal and endovaginal imaging was obtained of thepelvis. Endovaginal images were obtained for better visualization of theuterus and adnexal structures. Grayscale, color and spectral Dopplerassessment were utilized. The technical quality of the study is adequate. Findings: Ultrasound images demonstrate a uterus of unremarkableechotexture. Endometrial stripe is uniform in appearance with a measurementof 1 cm. Uterus measures 6.1 x 3.4 x 5.1 cm. A septated cystic mass is seen within the right adnexa measuring 9.5 x 6.1x 5.4 cm. Color Doppler imaging demonstrates blood flow within the septaand around the periphery. A normal right ovary is not seen. Left ovaryappears normal in appearance. Left ovary measures 2.8 x 1.8 x 1.2 cm. Asmall amount of free fluid isseen in the left adnexa.[facility] Metabolic Panel ([id number]) 2023-05-03 21:40:46* Test Item Value Reference Range Interpretation Comme nts NA (test code = 5449846386) 140 mmol/L 135-145 K (test code = 2840723707) 3.6 mmol/L 3.5-5.0 CL (test code = 5159531009) 108 mmol/L 98-108 CO2 TOTAL (test code = 0338328697) 19 mmol/L 23-31 L AGAP (test code = 7873275851) 13 2-16 BUN (test code = 8262227838) 8 mg/dL 7-23 GLUCOSE (test code = 0000016388) 80 mg/dL 70-110 CREATININE (test code = 5260030967) 0.53 mg/dL 0.50-1.04 TOTAL BILI (test code = 6889994773) 0.7 mg/dL 0.1-1.1 CALCIUM (test code = 7480604921) 9.4 mg/dL 8.6-10.6 T PROTEIN (test code = 6749616647) 7.2 g/dL 6.3-8.2 ALBUMIN (test code = 2551969031) 4.5 g/dL 3.5-5.0 ALK PHOS (test code = 0844750234) 60 U/L 34-122 ALTv (test code = 1742-6) 59 U/L 5-35 H AST(SGOT) (test code = 0739628941) 40 U/L 13-40 eGFR (test code = 74387-3) 134.3 mL/min/1.73m2 CKD-EPI eGFR (2020). Assuming creatinine has been stable day-to-day for at least three months, the eGFR indicates Category G1 (>= 90 mL/min/1.73 m2) Lab Interpretation (test code = 14848-2) Abnormal [facility] with [id number] 21:35:45* Test Item Value Reference Range Interpretation Comme nts WBC (test code = 6690-2) 12.42 See_Comment H [Automated [employer] ge] The system which generated this result transmitted reference range: 4.30 - 11.10 10*3/?L. The reference range was not used to interpret this result as normal/abnormal. RBC (test code = 789-8) 4.89 See_Comment [Automated [employer] ge] The system which generated this result transmitted reference range: 3.93 - 5.25 10*6/?L. The reference range was not used to interpret this result as normal/abnormal. HGB (test code = 718-7) 13.6 g/dL 11.6-15.0 HCT (test code = 4544-3) 41.4 % 35.7-45.2 MCV (test code = 787-2) 84.7 fL 80.6-95.5 MCH (test code = 785-6) 27.8 pg 25.9-32.8 MCHC (test code = 786-4) 32.9 g/dL 31.6-35.1 RDW-SD (test code = 28510-0) 40.4 fL 39.0-49.9 RDW-CV (test code = 788-0) 13.1 % 12.0-15.5 PLT (test code = 777-3) 393 See_Comment H [Automated [employer] ge] The system which generated this result transmitted reference range: 166 - 358 10*3/?L. The reference range was not used to interpret this result as normal/abnormal. MPV (test code = 74727-1) 10.3 fL 9.5-12.9 NRBC/100 WBC (test code = 3220373264) 0.0 See_Comment [Automated [employer] ssage] The system which generated this result transmitted reference range: 0.0 - 10.0 /100 WBCs. The reference range was not used to interpret this result as normal/abnormal. NRBC x10^3 (test code = 0838958087) See_Comment [Automated [employer] ge] The system which generated this result transmitted reference range: 10*3/?L. The reference range was not used to interpret this result as normal/abnormal. GRAN MAT (NEUT) % (test code = 770-8) 59.2 % IMM GRAN % (test code = 4354685946) 0.20 % LYMPH % (test code = 736-9) 31.9 % MONO % (test code = 5905-5) 5.8 % EOS % (test code = 713-8) 2.4 % BASO % (test code = 706-2) 0.5 % GRAN MAT x10^3(ANC) (test code = 0602659699) 7.35 10*3/uL 1.88-7.09 H IMM GRAN x10^3 (test code = 4716802177) 0.03 10*3/uL 0.00-0.06 LYMPH x10^3 (test code = 731-0) 3.96 10*3/uL 1.32-3.29 H MONO x10^3 (test code = 742-7) 0.72 10*3/uL 0.33-0.92 EOS x10^3 (test code = 711-2) 0.30 10*3/uL 0.03-0.39 BASO x10^3 (test code = 704-7) 0.06 10*3/uL 0.01-0.07 Lab Interpretation (test code = 67865-7) Abnormal [facility]. PYLORI (BREATH)2021-10-07 14:41:20* Test Item Value Reference Range Interpretation Comme nts H. PYLORI (BREATH) (test code = 21920) POSITIVE NEGATIVE A UNLESS OTHER RUBIO INDICATED, ALL TESTING PERFORMED [facility] [address] [place] [address] GEOMAGNETIST: JORGE LUIS CORONA M.D. CLIA NUMBER [id number] [facility] [place] [id number] Consult Notes Date/Time Note Provider Source 2023-05-03 16:03:54 Associated Order(s): CONSULT UROLOGY UROLOGY CONSULTATION NOTE Requesting Provider: Dr. Edwards Date of Service: 05/03/2023 Reason for Consult: " Transferred from OSH for right adnexal mass with right hydronephrosis on CT. CT with 4cm calcification in right lower pelvis. CD submitted for upload. " History of Present Illness: Josephinebri Carpenter, 22 year old, female, presents as transfer from [facility] with large right ovarian cystic mass and 4mm calcification at level of ovarian cyst likely phlebolith upon personal read and in discussion with radiology. Mild right HN likely mass effect from ovarian cyst Reports right lower abdominal pain and right lower flank pain since yesterday in the ED now 4-5/. Reports intermittent sharp flank pain in addition to Nausea and episode of gross hematuria. Denies vomiting. Last ate 11 pm yesterday. No blood thinner use. Renal function preserved. UA contaminated. Mild leukocytosis WBC 13. Medications: Home Medications: (Not in a hospital admission) Hospital Medications: No current facility-administered medications for this encounter. No current outpatient medications on file. Histories: No past medical history on file. No past surgical history on file. No family history on file. Social History Socioeconomic History Marital status: Single Allergies: No Known Allergies Review of Systems: Constitutional: negative Eyes: negative Ears, nose, mouth, throat: negative Cardiovascular: negative Respiratory: negative Gastrointestinal: negative Genitourinary: (+) per HPI Musculoskeletal: negative Integumentary: negative Neurological: negative Psychiatric: negative Endocrine: negative Hematologic/Lymphatic: negative Allergic/Immunologic: negative, allergies listed above Physical Exam: Blood pressure 121/75, pulse 75, temperature 37.2 ?C (99 ?F), resp. rate 18, weight 90.3 kg (199 lb), last menstrual period 04/04/2023, SpO2 99 %. Constitutional: healthy, no acute distress Eyes: normal external eye, conjunctiva and sclera normal Ears, nose, mouth, throat: normocephalic, moist mucous membranes Cardiovascular: regular rate and rhythm, peripheral pulses 2+ in bilateral upper extremities Respiratory: respirations unlabored on room air Gastrointestinal: soft, non-distended, no painMild right lower abominal tenderness, Laboratory: Hemogram Recent Labs 05/03/23 1514 WBC 12.42* HGB 13.6 HCT 41.4 PLT 393* Chemistry Recent Labs 05/03/23 1514 NA 140 K 3.6 CL 108 TCO2 19* AGAP 13 BUN 8 GLU 80 CREAT 0.53 CA 9.4 EGFR 134.3 Urinalysis Recent Labs 05/03/23 1514 USPGRAV 1.025 UPH 7.0 UPROTEIN Negative UGLUCOSE Normal UKETONES 20 mg/dL* UBILI Negative UNITRITE Negative ULEUKEST 75/uL* URBC 18* UWBC 4 UBACTERIA Negative Liver Function Tests Recent Labs 05/03/23 1514 AST 40 ALT 59* ALKPHOS 60 BILIT 0.7 Coagulation Profile There are no current results on file for these tests and/or test for the past 3 mos. Arterial Blood Gas There are no current results on file for these tests and/or test for the past 3 mos. Radiology: OSH CTAP reviewed - likely 4mm right lower pelvic phlebolith outside of ureter - large right ovarian cyst displacing right ureter - discussed with radiology Procedure: none Assessment/Recommendations: Josephine Carpenter is a 22 year old female presents as OSH transfer for right ovarian mass with mild right hydroenephrosis 4 mm right lower phlebolith, low concern for ureteral stone on personal read and discussion with radiology - No acute urologic intervention - Given preserved renal function and minimal right flank pain no indication for ureteral stent - Followup with urology outpatient to reassess - Right ovarian mass per strategic planning consultant, if surgery indicated Urology can be available for stent placement at the time - Follow UA, UTI treatment if indicated - Rest per primary team Discussed case with faculty, Dr. Roca. 05/03/2023 . Walker Bridges MD Urology PGY-3 05/03/2023 4:04 PM SUPERVISOR URO-UROLOGY [facility] - Health History and Physical Notes Date/Time Note Provider Source 2023-07-06 06:45:00 GYNECOLOGY HISTORY AND PHYSICAL Date of Service: 07/06/23 HPI Josephine Carpenter is a 23 year old female presenting for robot-assisted right ovarian cystectomy due to left ovarian cyst. Patient denies changes in medical history since pre-operative evaluation on 05/06/23. Sexual History: Social History Substance and Sexual Activity Sexual Activity Not on file Current Medications: No current facility-administered medications for this encounter. No current outpatient medications on file. Allergies: Patient has no known allergies. History: No past medical history on file. Surgical History: No past surgical history on file. ROS: General: negative Constitutional: negative Eyes: negative ENT/Mouth: negative Cardiovascular: negative Respiratory: negative Gastrointestinal:negative Genitourinary: negative Musculoskeletal: negative Skin/breast: negative Neurological: negative Psychiatric: negative Endocrine: negative Hemat/Lymph: negative Allergic/Immuno:none Physical Exam: Vitals: Vitals: 07/06/23 0609 BP: 112/84 Pulse: 81 Resp: 16 Temp: 35.6 ?C (96.1 ?F) SpO2: 99% Constitutional: alert, no apparent distress, appearing age appropriate CV: regular rate and rhythm, no murmurs/clicks/rubs Respiratory: Clear to auscultation bilaterally, good inspiratory effort to inspection Abdomen: soft, nontender, nondistended, no rebound/guarding Extremities: no edema or calf tenderness bilaterally Labs: CBC WBC (10*3/?L) Date Value 05/03/2023 12.42 (H) RBC (10*6/?L) Date Value 05/03/2023 4.89 PLT (10*3/?L) Date Value 05/03/2023 393 (H) HGB (g/dL) Date Value 05/03/2023 13.6 HCT (%) Date Value 05/03/2023 41.4 ALTv (U/L) Date Value 05/03/2023 59 (H) AST(SGOT) (U/L) Date Value 05/03/2023 40 CREATININE (mg/dL) Date Value 05/03/2023 0.53 No results found for: "T4" No results found for: "TSH" Recent Labs 05/03/23 1514 PREGURINE Negative Imaging: Narrative & Impression Ordering Physician: Jose Cruz Edwards History: Adnexal mass, abdominal pain, evaluation for torsion. Comparison Study: None. Technique: Transabdominal and endovaginal imaging was obtained of the pelvis. Endovaginal images were obtained for better visualization of the uterus and adnexal structures. Grayscale, color and spectral Doppler assessment were utilized. The technical quality of the study is adequate. Findings: Ultrasound images demonstrate a uterus of unremarkable echotexture. Endometrial stripe is uniform in appearance with a measurement of 1 cm. Uterus measures 6.1 x 3.4 x 5.1 cm. A septated cystic mass is seen within the right adnexa measuring 9.5 x 6.1 x 5.4 cm. Color Doppler imaging demonstrates blood flow within the septa and around the periphery. A normal right ovary is not seen. Left ovary appears normal in appearance. Left ovary measures 2.8 x 1.8 x 1.2 cm. A small amount of free fluid is seen in the left adnexa. IMPRESSION 1. A septated, cystic mass is seen within the right adnexa measuring up to 9.5 cm without secondary signs of torsion. Most likely a complex right ovarian mass. Gynecology follow-up is recommended. 2. Left ovary is normal in appearance. 3. Uterus is unremarkable. 4. A small amount of free fluid is seen within the pelvis which is most likely physiologic. AFC: [id number]. RL: [id number]. Specimen Collected: 05/03/23 16:26 Last Resulted: 05/03/23 16:31 Assessment/Plan: Josephine Carpenter is a 23 year old female presenting for scheduled robot-assisted left ovarian cystectomy due to right ovarian cyst. Right ovarian cyst - Hx of 9.5 cm complex right ovarian cyst, noted on ED visit on 05/03/23 - Preop abx: None - Preop Hgb 13.6 - current type and screen ordered, pending - No PSH - UPT negative on admission - DVT ppx: SCDs - Risks/benefits/alternatives discussed, consents signed and in chart - Proceed to OR for above listed procedures - Discharge from [facility] postop Steve Rooney MD 07/05/2023 8:47 PM SUPERVISOR Associated attestation - Aleshia Lei MD - 07/06/2023 6:51 AM LINE SUPERVISOR I personally examined the patient on 07/06/[address] Olguin's fellow note as written . I actively participated in the decision-making process. Please see the resident's note for additional details. OG-OBSTETRICS & GYNECOLOGY [facility] - Health Notes Date/Time Note Provider Source 2024-02-08 08:45:00 Images from the original note were not included. Venipuncture collection performed by clean technique on the left anticubitus. Total of 1 attempts were made. Slight pressure and a bandage/dressing were applied to the site(s). The patient experienced no complications. The following specimens were processed according to instructions and sent to [facility] laboratories per lab order on 02/08/2024 : LT BLUE SST 1 RED LAV PPT DK GREEN (LiHep) DK GREEN (SodH) KEMP DK BLUE (K2) DK BLUE (S) ACD Blood Culture NIPT/NTD Patient has been identified by and was provided with cup, antiseptic towelette, and clean catch instructions. 1 urine specimen(s) sent. Unpreserved Urine Culture 1 Aptima tube Other urine [facility] 2024-02-04 16:00:00 Age: [age] year old GA: 16w0d 1. Supervision of high risk in second trimester - CONSULT MATERNAL MEDICINE ULTRASOUND Multiple Gestation: No 2. 16 weeks gestation of - No concerns precautions given - Alpha Fetoprotein-Maternal Ser; Future - POCT Urinalysis w/o Specific Dahinda - CONSULT MATERNAL MEDICINE ULTRASOUND Multiple Gestation: No 3. Obesity affecting in second trimester, unspecified obesity type - Stable weight gain - CONSULT MATERNAL MEDICINE ULTRASOUND Multiple Gestation: No MARTINEZ in 4 weeks or PRN Future Appointments In 4 days 2, Adc Lab [facility], [facility] In 4 weeks Johanna Pedersen MD [facility], [facility] Johanna Pedersen MD [facility] 2024-01-24 10:30:05 Received [facility] results via fax. Stamped and will be scanned/uploaded into pt's chart. LAURA GOMEZ RN 01/24/2024 10:30 AM Laura Gomez RN [facility] 2024-01-17 14:19:13 Received [facility] results via fax. Stamped and will be scanned/uploaded into pt's chart. Mychart message sent. LAURA GOMEZ RN 01/17/2024 2:22 PM Laura Gomez RN [facility] 2024-01-07 11:00:00 Age: [age] year old GA: 12w0d PLAN 1. Supervision of high risk in second trimester 2. 12 weeks gestation of N/V improved with promethazine - No concerns - NIPT kit provided - POCT Urinalysis w/o Specific Dahinda - Urine Culture; Future - Urine Culture - FLU VACC ([id number]), 6 MO-64 YRS, .5ML, IM, TIV (FLUCELVAX) 3. Flu vaccine need - FLU VACC ([id number]), 6 MO-64 YRS, .5ML, IM, TIV (FLUCELVAX) 4. Obesity affecting in second trimester, unspecified obesity type Stable weight MARTINEZ in 4 weeks or PRN Future Appointments In 4 weeks Johanna Pedersen MD [facility] Johanna Pedersen MD [facility] 2024-01-07 10:15:00 Bk only Urine done in clinic [facility] 2023-12-27 07:38:36 Letter to employer sent. [facility] 2023-12-10 10:45:00 Pt was given 50 Glucola @ 1045. No issues. Pt finished @ 1048. Draw Time @ 1148. Jaci Goyal 12/10/2023 10:47 AM T [facility] 2023-12-10 10:45:00 Images from the original note were not included. Pt gave urine during appointment w provider. Venipuncture collection performed by clean technique on the left anticubitus. Total of 1 attempts were made. Slight pressure and a bandage/dressing were applied to the site(s). The patient experienced no complications. The following specimens were processed according to instructions and sent to [facility] laboratories per lab order on 12/10/2023: LT BLUE SST 4 RED 1 LAV 2 PPT DK GREEN (LiHep) DK GREEN (SodH) KEMP DK BLUE (K2) DK BLUE (S) ACD Blood Culture NIPT/NTD [facility] - Health 2023-12-10 10:00:00 Age: [age] year old GA: 8w0d Josephine Lopez is a 23 year old presents for 8w0d gestation by LMP for Initial OB visit today and follow up viability scan Had mild spotting earlier in the week but currently none, abdominal pain or cramps.C/o worsening nausea and would like medications for symptoms She is in a stable relationship and denies domestic violence/immediate partner violence. Sonogram confirmed an IUP at 8w1d gestation, dates consistent with her clinical dating based on LMP Assessment/Plan High-risk supervision, first trimester (primary encounter diagnosis) 8 weeks gestation of Discussed do's and don'ts of , safe foods, safe medications. NOB folder given We discussed course, labs, aneuploidy and genetic carrier screening and ultrasounds. Expectations for weight gain this include 15 pounds. Exercise in discussed and encouraged. aneuploidy options were reviewed including NIPT: cFDNA test and 2nd trimester QUAD screen. The benefits and short falls of these screening tests were reviewed. Also discussed diagnostic tests: CVS vs amniocentesis. She is undecided on the testing, written information were provided and we will discuss further at next appointment. Reviewed Zika virus precautions .Discussed about COVID-19/flu precautions. Social distancing, frequent hand washings, signs/symptoms for testing and to follow CDC recommendations discussed. I discussed the call schedule and that I deliver here at [facility]. I discussed that I have two partners, Dr. Alcocer and Dr. Crouch and that they may deliver her or take care of her during her . I discussed that at [facility] we do not have a NICU, and that high risk pregnancies or deliveries less than 36 weeks will be transferred to [place]. All questions were answered. NOB labs today precautions reviewed Encouraged to call if have any additional questions or concerns. Plan: POCT Urinalysis w/o Specific Dahinda, ADC or [place] Only - Rpr, Cbc with Diff, Hcv Antibody, Hepatitis B Surface Antigen, HIV 1/2 Ag-Ab with Reflex, Rubella Screen IgG, Urine Culture, VZV Antibody Screen, Glycosylated Hemoglobin (A1C), Glucose 1 Hour Post Prandial, Thyroid Stimulating Hormone, Free T4, Urine Drug (Immunoassay) - Comprehensive Drug Screen, Urine Drug (Immunoassay) - Comprehensive Drug Screen Obesity affecting in first trimester, unspecified obesity type Reviewed the risks associated obesity in - GDM, GTHN, Macrosomia, IUGR, labor dsytocia which could lead to with increased risk of wound breakdown. Discussed appropriate weight gain for her BMI (15lbs), healthy eating with regular moderate intensity exercise Plan: Urine Drug (Immunoassay) - Comprehensive Drug Screen, Urine Drug (Immunoassay) - Comprehensive Drug Screen Encounter to determine viability of , single or unspecified fetus Plan: OB Ultrasound Transvaginal Nausea/vomiting in Plan: proMETHazine 25 mg tablet Return to clinic in 4 weeks. Discussed treatment options. Medications as ordered. Reviewed patient instructions and provided printed copy. Johanna Pedersen MD 12/11/2023 1:15 PM [facility] 2023-12-03 13:53:15 Spoke with patient. Patient states she noticed light red blood on her shorts a few hours ago. She now had brownish blood with a couple small blood clots. Last intercourse 3-[address] Crouch. Dr. Crouch okay with patient being seen by her today. Patient scheduled. Deon English RN 12/03/2023 2:04 PM Deon English RN [facility] 2023-12-03 12:29:39 Pt says she is having some bleeding she like to discuss if she should be concerned. Nuris Varma [facility] 2023-11-26 08:00:00 Images from the original note were not included. Venipuncture collection performed by clean technique on the left anticubitus. Total of 1 attempts were made. Slight pressure and a bandage/dressing were applied to the site(s). The patient experienced no complications. The following specimens were processed according to instructions and sent to [facility] laboratories per lab order on 11/26/2023 : LT BLUE SST 1 RED LAV 1 PPT DK GREEN (LiHep) DK GREEN (SodH) KEMP DK BLUE (K2) DK BLUE (S) ACD Blood Culture NIPT/NTD [facility] 2023-11-24 15:15:00 Images from the original note were not included. Venipuncture collection performed by clean technique on the left anticubitus. Total of 1 attempts were made. Slight pressure and a bandage/dressing were applied to the site(s). The patient experienced no complications. The following specimens were processed according to instructions and sent to [facility] laboratories per lab order on 11/24/2023 : LT BLUE SST 1 RED LAV 1 PPT DK GREEN (LiHep) DK GREEN (SodH) KEMP DK BLUE (K2) DK BLUE (S) ACD Blood Culture NIPT/NTD [facility] 2023-08-12 13:57:57 Disability forms completed and signed by and faxed to [facility] with confirmation along with office visit notes and CT results. Maritza Sams RN [facility] 2023-08-09 16:13:14 Reviewed chart. LV 07/14/23 for one week post-op Pt s/p RA Lap right oophorectomy and cystectomy on 07/06/23. OVARY WITH CYST, RIGHT, OOPHORECTOMY: - HEMORRHAGIC CORPUS LUTEUM AND ENDOMETRIOSIS [employer] disability forms completed, medical record printed to attached to forms. Will have provider sign and determine RTW date and any limitations. Pt does not have a future post op appt. Fátima Pollard RN [facility] 2023-08-09 13:52:43 Received disability forms for patient . Form scanned into the chart and given to the nurse. Mckenzie Robison [facility] 2023-07-01 08:42:52 Images from the original note were not included. Procedure is at: [place] [id number]. The Day Surgery is location on the left corner of [facility] closest to the [facility]. On that NW corner you will see a sign that states "Surgery". Please go inside that door and sign in at that desk. Do not eat anything the morning of your procedure starting at Midnight or 8 hours before arrival time, which ever is longer. You may drink water, sprite or gatorade the morning of the procedure, but only up until a certain point. Do not drink anything within 2 hours of your arrival. You may take your medications as instructed below with a sip of water unless otherwise directed by physician. MAC Cases may continue Diuretics. GLP1a medications must be held for 7 days PRIOR to Day of Procedure. Anticoagulants will be per physician Guidance. Report to [facility], [address] [place] [id number], Day Surgery Unit on 07-06-23 [facility] will call you the business day before your procedure to let you know what time to arrive. Please note: You may not travel home alone and that includes in a taxi, bus, or Uber. We must speak to your Responsible Adult before your procedure the morning of your procedure. No eye make-op, no false eye lashes, and nothing in your hair other than an elastic band, if needed. [facility] 2023-06-28 13:22:04 R4 Telephone Note 06/28/2023 1:22 PM Called patient to discuss her medications. Patient reports has not taken phentermine for about 2 weeks now. Instructed patient to make sure she doesn't take it for 1 week prior to surgery. Patient verbalized understanding. No further questions. Nadine Luna MD [facility] 2023-06-23 16:30:16 Documented on another telephone encounter. A Sams RN [facility] 2023-06-23 16:29:13 Called patient and verified patient by name and . Patient provided with day surgery number for financial planning. A Sams RN [facility] 2023-06-23 15:48:16 Patient returning a nurse call A Dash [facility] 2023-06-23 15:00:02 Pt returned the nurse's call. A May [facility] 2023-06-23 14:43:05 Called patient no answer LVM to return call to inform patient after chart review her sx has been scheduled for 07/06/23. Awaiting return call. SUPERVISOR Maritza Sams RN [facility] 2023-06-23 14:25:40 Pt called and said is ready to schedule her surgery again.. She has been sick and would like to schedule for sometimes in July. SUPERVISOR Nedra May [facility] 2023-06-09 16:07:58 Addended by: COREY IVY, ACCOUNT ANALYST, SIMEON-ASTRID MANNING on: 06/09/2023 04:07 PM Modules accepted: Orders [facility] 2023-06-09 15:20:35 Routing to to post case and PSS to scheduled post op appts. SUPERVISOR Maritza Sams RN [facility] 2023-06-09 15:17:18 Pt will accept 07/06/23 at [place] SUPERVISOR Sarah Theodore [facility] 2023-06-09 14:56:00 Called patient no answer LVM to return call to inform patient per Pt may reschedule to 07/06/2023 at [place] or 07/14/2023 at [facility]. Pt will need 1 week post op with Corey and 6 week post op with Do. Awaiting return call. [facility] 2023-06-09 13:34:19 Pt is ready to schedule surgery. Please call [phone] [facility] 2023-05-13 09:43:26 Patient called into the office and was verified by name and . Patient reports she went to outside ER on 05/02 and was prescribed Cipro and Diclofenac. Patient informed we have no records to see why the ABX cipro was prescribed but as far as Diclofenac she needs to hold that medication because she is scheduled for sx on 05/26/22. She can take tylenol for pain. Patient verbalizes understanding. PT UC from [facility] ER was neg on 05/03/23. A Sams RN [facility] 2023-05-13 09:21:35 Addended by: COREY IVY APRN, WHNP-ASTRID MANNING on: 05/13/2023 09:21 AM Modules accepted: Orders [facility] 2023-05-13 09:05:54 Called patient and verified patient by name and . Patient reports she will have no insurance after 05/15/23. Patient informed and are JAMMIE on Sunday 05/14. Patient accepts sx date of 05/26 at . Patient provided with the number to financial planning for cost of surgery. A Sams RN [facility] 2023-05-13 08:11:26 Patient is calling about a surgery for tomorrow, states she called office yesterday and was supposed to receive a call back about a date, that they were trying to work in tomorrow, her insurance will run on 05/15/2023 A Dash [facility] 2023-05-12 11:52:30 Called pt and inform surgery dates of 05/26 pt accept date will forward to Corey to schedule and PSS to schedule post op. SUPERVISOR Eva Landa MA [facility] 2023-05-11 08:48:12 Patient calling for a new surgery date. She was originally scheduled for today but it was canceled. Please assist. A Robison [facility] 2023-05-06 15:00:00 Addended by: COREY IVY, ACCOUNT ANALYST, SIMEON-ASTRID MANNING on: 05/06/2023 04:46 PM Modules accepted: Orders SUPERVISOR WHIP OPERATOR-WOMEN'S HEALTH MIDLEVEL PROVIDER [facility] 2023-05-04 15:23:55 Patient has made her Appointment made with Dr. Freeman with the [facility]. Patient said she was referred to him. Patient has the next available,she would like something sooner. Will add to wait list in cases we get a cancellation. A Rossi [facility] 2023-05-04 14:27:13 Spoke with patient, wants to schedule in [place]. Needing to be seen this week per notes. A Cortez [facility] 2023-05-04 12:39:58 Josephine Carpenter is a 22 year old female Patient is calling to schedule from referral. Notes on referral stating if pt can be scheduled on 05/06 or 05/07. Pt prefers 05/06 please advise [facility] 2023-05-03 17:49:54 Josephine Silva Pauline verbalized an understanding of DC instructions. NAD. Respirations unlabored. Pt ambulated out of the ER without difficulty. No new prescriptions. Pt instructed on mychart and follow up appt. Pt dc'd to lobby to await ride home. SUPERVISOR Fátima Adler RN [facility] 2023-05-03 16:57:31 Called assistant press operator who states she sent imaging to [facility]. SUPERVISOR Rakesh Dunham RN [facility] 2023-05-03 16:57:27 14 fr. Straight cath used to obtain urine sample. UA sent and urine culture sent from cathed urine. Pt tolerated well. Urine fierro yellow. Sterile technique was used to obtain sample. [facility] 2023-05-03 16:11:22 Pt returned from US. Urology at bedside. [facility] 2023-05-03 14:42:40 Pelvic exam chaperoned. Pt awaiting CT. [facility] 2023-05-03 14:17:18 Pt ambulated to BR. NAD. [facility] 2023-05-03 14:02:51 PARTNERSHIP MARKETING MANAGER resident arrived and assessing pt. [facility] 2023-05-03 13:55:46 Pt arrived via EMS. Pt c/o rt flank pain. Pain currently 8/10. Pt reports pain was temporarily relieved with toradol, but has returned. Pt transferred for PARTNERSHIP MARKETING MANAGER referral. Reports h/o hypothyroid and vitamin D deficiency. Rt AC PIV flushes well. Pt placed on serial BP and pulse ox. Bed in lowest locked position. Side rails up x2. Call light within reach. AAOx4. VSS. Respirations unlabored. NAD noted. Awaiting PARTNERSHIP MARKETING MANAGER. Notified by triage. [facility] 2023-05-03 13:55:00 Gynecology is aware of patient arrival [facility] 2023-05-03 13:43:16 Josephine Carpenter is a 22 year old female to the ER as transfer from OSH accepted by PARTNERSHIP MARKETING MANAGER. Pt c/o lower abdominal pain since yesterday; has 8x10 cm right ovarian cysts, hydronephrosis, and cholelithiasis without obstruction. Pt is AAO times 4 with e/u respirations. Gynecology paged to to notify of patient arrival [phone] [facility]
[2024-02-20] MEDS ORDERED: BISACODYL E.C. 5 MG TAB PO ONE (16:43)
[2024-02-20] MEDS ORDERED: CYCLOBENZAPRINE 10 MG TAB ONE (16:43)
[2024-02-20] MEDS ORDERED: ACETAMINOPHEN 325 MG TABLET ONE (16:43)
[2024-02-20 16:50] LABS: Specific Gravity 1.015 (1.005-1.030); Sqamous Epithelial <5 /HPF (None Seen); Urine Bacteria None Seen /HPF (<20); Urine Bilirubin NEGATIVE (Negative); Urine Blood 3+ (Negative); Urine Clarity Turbid (Clear); Urine Color Light-Yellow (Yellow); Urine Crystals Unidentified Few /HPF (None Seen); Urine Culture Reflex Order NOT NEEDED; Urine Glucose NEGATIVE (Negative); Urine Ketones NEGATIVE (Negative); Urine Micro Reflex YN NO BILL MICROSCOPIC; Urine Mucus 1+ /HPF (None Seen); Urine Nitrite NEGATIVE (Negative); Urine Protein NEGATIVE (Negative); Urine RBC >50 /HPF (None Seen); Urine Urobilinogen Normal (Normal); Urine WBC <5 /HPF (<5); Urine Yeast (Budding) Trace /HPF (None Seen)
--- NOTE | 2024-02-20 17:23 | ER ---
Nurse's Notes [facility] Name: Josephine Taylor Age: 23 yrs Sex: Female : 2000 Arrival Date: 02/20/2024 Time: 16:11 Bed 14 Private MD: Diagnosis: related conditions, unspecified, second trimester-constipation and low back pain Presentation: 02/19 16:17 Chief complaint: Patient states: low back pain today and pain is getting worse, also iw reports mild abd cramping , no vaginal bleeding , last BM today but it was hard. Coronavirus screen: At this time, the client does not indicate any symptoms associated with coronavirus-19. Initial Sepsis Screen: Does the patient meet any 2 criteria? No. Patient's initial sepsis screen is negative. Does the patient have a suspected source of infection? No. Patient's initial sepsis screen is negative. Risk Assessment: Do you want to hurt yourself or someone else? Patient reports no desire to harm self or others. Onset of symptoms was February 20, 2024. 16:17 Method Of Arrival: Ambulatory iw 16:17 Acuity: FREDDY 3 iw 16:30 Ebola Screen: No symptoms or risks identified at this time. me1 Triage Assessment: 16:30 General: Appears uncomfortable, well groomed, well developed, well nourished, Behavior me1 is calm, cooperative, appropriate for age, Reports low back pain today and pain is getting worse, also reports mild abd cramping , no vaginal bleeding , last BM today but it was hard. Pain: Complains of pain in back Pain does not radiate. Pain currently is 7 out of 10 on a pain scale. Quality of pain is described as crampy, Pain began gradually, Is continuous. EENT: No signs and/or symptoms were reported regarding the EENT system. Neuro: Level of Consciousness is awake, alert, obeys commands, Oriented to person, place, time, situation, Appropriate for age. Cardiovascular: Patient's skin is warm and dry. Respiratory: Airway is patent Respiratory effort is even, unlabored, Respiratory pattern is regular, symmetrical. GI: Reports constipation. : Reports pain in lower back. : Denies burning with urination, urinary frequency. Derm: Skin is intact, is healthy with good turgor, Skin is pink, warm \T\ dry. 16:30 Musculoskeletal: Reports pain in back. me1 OIL DISPATCHER: 16:19 1, Full Term 0, 0, Living 0, LMP 10/15/2023, unknown iw 16:32 1, Full Term 0, Premature 0, 0, Living 0, Verified sb4 Historical: - Allergies: 16:18 No Known Allergies; iw - Home Meds: 16:18 None [Active]; iw - PMHx: 16:18 Hypothyroidism; vitamin d deficiency; iw - Immunization history:: Adult Immunizations up to date. - Infectious Disease History:: Denies. - Social history:: Smoking status: Patient denies any tobacco usage or history of. Screenin:36 [facility] ED Fall Risk Assessment (Adult) History of falling in the last 3 months, me1 including since admission No falls in past 3 months (0 pts) Confusion or Disorientation No (0 pts) Intoxicated or Sedated No (0 pts) Impaired Gait No (0 pts) Mobility Assist Device Used No (0 pt) Altered Elimination No (0 pt) Score/Fall Risk Level 0 - 2 = Low Risk Maintained a safe environment, Provided non-skid footwear, Hourly rounding (assess needs \T\ fall precautionary measures) done. Abuse screen: Denies threats or abuse. Nutritional screening: No deficits noted. Tuberculosis screening: No symptoms or risk factors identified. Assessment: 16:36 General: See triage assessment. . me1 17:18 General: FHT 139 beats per minute. me1 17:26 GI: Bowel sounds present X 4 quads. Abd is soft X 4 quads. me1 Vital Signs: 16:19 Resp 18; Weight 98.88 kg; Height 5 ft. 3 in. ; Pain 7/10; iw 16:36 BP 125 / 96; Pulse 84; Resp 16; Pulse Ox 98% ; me1 17:15 BP 132 / 72; Pulse 89; Resp 16; Temp 98.6; Pulse Ox 100% ; me1 17:19 Pain 2/10; me1 16:19 Body Mass Index 38.62 (98.88 kg, 160.02 cm) iw 16:19 Pain Scale: Adult iw 17:19 Pain Scale: Adult me1 ED Course: 16:15 Patient arrived in ED. im 16:16 Nickie Lan PA-C is PHCP. sb4 16:16 Doug Lebron MD is Attending Physician. sb4 16:18 Triage completed. iw 16:22 Sandra Couch, RN is Primary Nurse. me1 16:30 Arm band placed on Patient placed in an exam room. me1 16:36 Patient has correct armband on for positive identification. Bed in low position. Call me1 light in reach. Side rails up X2. Provided Education on: POC. Verbalized understanding. . Client placed on continuous cardiac and pulse oximetry monitoring. NIBP monitoring applied. Pulse ox on. NIBP on. 16:36 No provider procedures requiring assistance completed. me1 16:44 UAM Sent. me1 16:44 Urine collected: clean catch specimen, cloudy. me1 17:27 Patient did not have IV access during this emergency room visit. me1 Administered Medications: 16:45 Drug: Bisacodyl PO 5 mg PO once Route: PO; me1 17:19 Follow up: Response: No adverse reaction me1 16:45 Drug: Acetaminophen PO 650 mg PO once Route: PO; me1 17:19 Follow up: Pain 2/10 Adult; Response: No adverse reaction; Pain is decreased me1 16:45 Drug: Cyclobenzaprine PO 10 mg PO once Route: PO; me1 17:18 Follow up: Response: No adverse reaction; Pain is decreased me1 Medication: 17:26 VIS not applicable for this client. me1 Outcome: 17:22 Discharge ordered by . sb4 17:30 Discharged to home ambulatory, me1 17:30 Condition: stable 17:30 Discharge instructions given to patient, Instructed on discharge instructions, follow up and referral plans. medication usage, Demonstrated understanding of instructions, follow-up care, medications, Prescriptions given X 1, 17:30 Patient left the ED. me1 Signatures: Penelope Owens, RN RN Nickie Joshua PA-C PA-C sb4 Martha Rincon Michelle, RN RN me1 Corrections: (The following items were deleted from the chart) 16:19 16:19 1, Full Term 0, 0, Living 0, LMP 10/05/2023, unknown iw iw 16:32 16:17 Chief complaint: Patient states: low back pain today and pain is getting worse, me1 also reports mild abd cramping , no vaginal bleeding , last BM today but it was hard iw 16:35 16:30 Musculoskeletal: No signs and/or symptoms reported regarding the musculoskeletal me1 system. me1
--- NOTE | 2024-02-20 17:23 | EDPHYS ---
Physician Documentation [facility] Name: Josephine Taylor Age: 23 yrs Sex: Female : 2000 Arrival Date: 02/20/2024 Time: 16:11 Bed 14 Private MD: ED Physician Doug Lebron HPI: 02/19 16:32 This 23 yrs old Female presents to ER via Ambulatory with complaints of sb4 Constipation, Low Back Pain, 18 Weeks . 16:32 The patient presents to the emergency department with back pain, constipation. The sb4 estimated gestational age is 18 weeks. course: care: private OB physician, Leakage of Fluid: none appreciated, Ultrasound: the patient had an ultrasound, which was normal, Risk/complications: no obvious risks or complications are appreciated. Previous pregnancies: the patient has never been . Associated signs and symptoms: Pertinent negatives: dysuria, vaginal bleeding, vaginal discharge. 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 - Infectious Disease History:: Denies. - Social history:: Smoking status: Patient denies any tobacco usage or history of. ROS: 16:51 Constitutional: Negative for fever, chills, and weight loss, sb4 16:51 Abdomen/GI: Positive for constipation, abdominal cramps, 16:51 Back: Positive for pain at rest, of the low back area, 16:51 All other systems are negative, Exam: 16:51 Constitutional: This is a well developed, well nourished patient who is awake, alert, sb4 and in no acute distress. Head/Face: Normocephalic, atraumatic. Eyes: Extra-ocular motions intact. Periorbital areas with no swelling, redness, or edema. ENT: Mucous membranes moist. Cardiovascular: Regular rate and rhythm with a normal S1 and S2. Respiratory: No increased work of breathing, no retractions or nasal flaring. Abdomen/GI: Soft, non-tender, no distension. Back: No spinal tenderness. No costovertebral tenderness. Full range of motion. Skin: Warm, dry with normal turgor. Normal color with no rashes, no lesions, and no evidence of cellulitis. MS/ Extremity: Pulses equal, no cyanosis. Neurovascular intact. Full, normal range of motion. Neuro: Awake and alert, GCS 15, oriented to person, place, time, and situation. Motor strength 5/5 in all extremities. Sensory grossly intact. Vital Signs: 16:19 Resp 18; Weight 98.88 kg; Height 5 ft. 3 in. ; Pain 7/10; iw 16:36 BP 125 / 96; Pulse 84; Resp 16; Pulse Ox 98% ; me1 17:15 BP 132 / 72; Pulse 89; Resp 16; Temp 98.6; Pulse Ox 100% ; me1 17:19 Pain 2/10; me1 16:19 Body Mass Index 38.62 (98.88 kg, 160.02 cm) iw 16:19 Pain Scale: Adult iw 17:19 Pain Scale: Adult me1 MDM: 16:19 Medical Screening Exam initiated sb4 17:21 Data reviewed: vital signs, nurses notes, lab test result(s), and as a result, I will sb4 discharge patient. Test considered but Not performed: Ultrasound not indicated, no abdominal pain, no vaginal bleeding, FHTs normal. Counseling: I had a detailed discussion with the patient and/or guardian regarding the historical points, exam findings, and any diagnostic results supporting the discharge/admit diagnosis, lab results, the need for outpatient follow up, an OB/Gyne specialist, to return to the emergency department if symptoms worsen or persist or if there are any questions or concerns that arise at home. 02/19 16:31 Order name: UAM; Complete Time: 16:50 sb4 02/19 16:31 Order name: FHT's; Complete Time: 17:18 sb4 Administered Medications: 16:45 Drug: Bisacodyl PO 5 mg PO once Route: PO; me1 17:19 Follow up: Response: No adverse reaction me1 16:45 Drug: Acetaminophen PO 650 mg PO once Route: PO; me1 17:19 Follow up: Pain 2/10 Adult; Response: No adverse reaction; Pain is decreased me1 16:45 Drug: Cyclobenzaprine PO 10 mg PO once Route: PO; me1 17:18 Follow up: Response: No adverse reaction; Pain is decreased me1 Disposition Summary: 02/20/24 17:22 Discharge Ordered Notes: Location: Home sb4 Problem: new sb4 Symptoms: have improved sb4 Condition: Stable sb4 Diagnosis - related conditions, unspecified, second trimester - constipation and low sb4 back pain Followup: sb4 - With: Private Physician - When: 1 week - Reason: Recheck today's complaints, Re-evaluation by your physician Discharge Instructions: - Discharge Summary Sheet sb4 - Back Pain in sb4 - Second Trimester of , [id number] sb4 Forms: - Patient Portal Instructions sb4 - Leadership Thank You Letter sb4 Prescriptions: - polyethylene glycol 3350 17 gram Oral powder in packet - take 1 packet ORAL route once daily; 30 Pack; Refills: 0, Product Selection sb4 Permitted Signatures: Dispatcher [employer] Penelope Paniagua RN RN iw Brown, Sophia PAYasmeenC PAYasmeenC sb4 Snadra Couch RN RN me1
[2024-02-20 21:14] VITALS: BP 132/72; TEMP 98.6; O2SAT 100
== END 2024-02-20 17:30 | disposition home or self-care (01) ==
LOC: ER 16:11
DX: O99.612 Diseases of the digestive system complicating pregnancy, second trimester (principal); K59.00 Constipation, unspecified; Z3A.18 18 weeks gestation of pregnancy
CPT/HCPCS: 81001; 99284